=== PATIENT | female | born 2000 | race African-American/Black ===

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

== ENCOUNTER 2019-03-24 12:45 | Emergency (ER) | payer MEDICAID ==
[~2019-03-24] VITALS: Ht 160 cm; Wt 56.2 kg
[~2019-03-24 12:45] MED LIST: DIFLUCAN100 MG ORAL
[2019-03-24 13:00] VITALS: BP 105/73
[2019-03-24] MEDS ORDERED: Phenazopyridine 200mg tab ORAL ONE (13:15)
--- NOTE | 2019-03-24 13:23 | NUR ---
ED Nurse Note: Urine sent.
[2019-03-24 13:40] LABS: APPEARANCE,URINE SLIGHTLY CLOUDY; BILIRUBIN, URINE NEGATIVE (NEGATIVE); GLUCOSE, URINE (UA) NEGATIVE (NEGATIVE); KETONES,URINE NEGATIVE (NEGATIVE); LEUKOCYTE ESTERASE ,URINE 3+ (NEGATIVE); NITRITE,URINE NEGATIVE (NEGATIVE); PH,URINE 7 (4.5-8.0); PROTEIN,URINE 3+ (NEGATIVE); UROBILINOGEN,URINE 4 MG/DL (0.0-1.0)
[2019-03-24 13:44] LABS: COLOR,URINE YELLOW
--- NOTE | 2019-03-24 13:59 | Emergency Room Report ---
History of Present Illness General Chief Complaint: General Complaint Source: Patient Present Illness HPI 18 YO female presents to the ED c/o 03/30 in severity dysuria x 6 days. Patient also reporting associated fevers and chills she states she has a headache and was recently prescribed amoxicillin for URI symptoms and was given metronidazole for which she has not used. Patient reports some hematuria as well she denies suspicion of STI or . She reports lower abdominal pain she denies tenderness she denies constipation, diarrhea, vomiting. Patient does report some nausea and decreased appetite. Allergies: Coded Allergies: No Known Allergies (Unverified , 06/27/17) Patient History Past Medical History: see triage record Past Surgical History: none Pertinent Family History: none Last Menstrual Period: 03/07/19 Now: No Reviewed Nursing Documentation: PMH: Agreed; PSxH: Agreed Nursing Documentation-PMH Past Medical History: No Stated History Review of Systems All Other Systems: negative except mentioned in HPI Physical Exam Vital Signs Date Time Temp Pulse Resp B/P (MAP) Pulse Ox O2 Delivery O2 Flow Rate FiO2 03/24/19 12:54 98.8 110 15 105/73 (84) 99 Room Air Sp02 EP Interpretation: reviewed, normal General Appearance: no apparent distress, alert, GCS 15, non-toxic Head: normocephalic, atraumatic Eyes: bilateral eye normal inspection, bilateral eye PERRL ENT: hearing grossly normal, normal voice Neck: full range of motion Respiratory: chest non-tender, lungs clear, normal breath sounds, speaking full sentences Cardiovascular #1: regular rate, rhythm, tachycardia Gastrointestinal: normal bowel sounds, non tender, soft, non-distended, no guarding Genitourinary: normal inspection, CVA tenderness (R), CVA tenderness (L) Musculoskeletal: back normal, gait/station normal, normal range of motion, non- tender Neurologic: alert, oriented x3, responsive, motor strength/tone normal, sensory intact, normal gait, speech normal, grossly normal Psychiatric: judgement/insight normal Skin: no rash Lymphatic: no adenopathy Medical Decision Making PA Attestation Dr. Ordonez Is my supervising Physician whom patient management has been discussed with. Diagnostic Impression: Primary Impression: Urinary tract infection Qualified Codes: N30.01 - Acute cystitis with hematuria Additional Impressions: Pyelonephritis Trichomonas infection ER Course 18 YO female presents to the ED c/o 03/30 in severity dysuria x 6 days. Patient also reporting associated fevers and chills she states she has a headache and was recently prescribed amoxicillin for URI symptoms and was given metronidazole for which she has not used. Patient reports some hematuria as well she denies suspicion of STI or . She reports lower abdominal pain she denies tenderness she denies constipation, diarrhea, vomiting. Patient does report some nausea and decreased appetite. Ddx: considered but are not limited to UTi , Pyelo, STI, Stone, Cystitis Vital signs: Pt. is tachycardic, other vs are WNL, pt. is afebrile H&PE are most consistent with UTI / pyelonephritis due to CVA tenderness ORDERS: - UA labs are attached -- Elevated inflammatory markers, few bacteria, moderate trichomonas ED INTERVENTIONS: - Pyridium PO - 2g Flagyl PO ( due to pt. being non-compliant with previous rx's and not taking as rx'd). - 300mg Cefdinir PO -Zofran 4mg PO -Tramadol PO for pain DISCHARGE: At this time pt. is stable for d/c to home. Will provide printed patient care instructions, and any necessary prescriptions. Care plan and follow up instructions have been discussed with the patient prior to discharge. Labs Test 03/24/19 13:16 Urine Color Yellow Urine Appearance Slightly cloudy Urine pH 7 (4.5-8.0) Urine Specific [place] 1.005 (1.005-1.035) Urine Protein 3+ (NEGATIVE) Urine Glucose (UA) Negative (NEGATIVE) Urine Ketones Negative (NEGATIVE) Urine Blood 4+ (NEGATIVE) Urine Nitrite Negative (NEGATIVE) Urine Bilirubin Negative (NEGATIVE) Urine Urobilinogen 4 MG/DL (0.0-1.0) Urine Leukocyte Esterase 3+ (NEGATIVE) Urine RBC 2-4 /HPF (0 - 2) Urine WBC 20-30 /HPF (0 - 2) Urine Squamous Epithelial Cells Few /LPF (NONE/OCC) Urine Bacteria Few /HPF (NONE) Urine Trichomonas Occasional /HPF (NONE) Urine HCG, Qualitative Negative (NEGATIVE) Last Vital Signs Date Time Temp Pulse Resp B/P (MAP) Pulse Ox O2 Delivery O2 Flow Rate FiO2 03/24/19 12:54 98.8 110 15 105/73 (84) 99 Room Air Disposition: HOME, SELF-CARE Condition: Stable Scripts Acetaminophen With Codeine (T#3) (TYLENOL #3 TAB*) Y Tab 1 TAB ORAL Q6H PRN for For Pain, #6 TAB Prov: Talya Arzate 03/24/19 Phenazopyridine Hcl* (PYRIDIUM*) 100 Mg Tablet 100 MG ORAL THREE TIMES A DAY for 3 Days, #9 TAB Prov: Talya Arzate 03/24/19 Cefdinir (CEFDINIR) 300 Mg Capsule 300 MG PO BID for 7 Days, #14 CAP Prov: Talya Arzate 03/24/19 Referrals: [facility]REFERRING (PCP) Additional Instructions: Take medications as directed. Follow up with a Primary Care Provider in 3-5 days, even if your symptoms have resolved. --Please review list of primary care clinics, if you do not already have a primary care provider Return sooner to ED if new symptoms occur, or current symptoms become worse. - Please note that this Emergency Department Report was dictated using [employer] care administrator technology software, occasionally this can lead to erroneous entry secondary to interpretation by the dictation equipment. Talya Arzate Mar 24, 2019 13:59
[2019-03-24] MEDS ORDERED: Cefdinir 300mg cap ORAL ONE (14:15)
[2019-03-24] MEDS ORDERED: metroNIDAZOLE 500mg tab ORAL ONE (14:15)
--- NOTE | 2019-03-24 14:35 | NUR ---
ED Nurse Note: oral medication taken withno issue.
[2019-03-24] MEDS ORDERED: PHENAZOPYRIDIN100 MG ORAL (15:40)
[2019-03-24] MEDS ORDERED: CEFDINIR300 MG PO (15:40)
[2019-03-24] MEDS ORDERED: ACETAMINOPHEN-1 EAC1 ORAL (15:40)
[2019-03-24] MEDS ORDERED: traMADol 50mg tab ORAL ONE (16:00)
[2019-03-24 16:01] VITALS: BP 105/73
== END 2019-03-24 16:01 | disposition home or self-care (01) ==
LOC: EMR 13:21
DX: N30.01 Acute cystitis with hematuria (principal); N12 Tubulo-interstitial nephritis, not specified as acute or chronic; A59.9 Trichomoniasis, unspecified
CPT/HCPCS: 81003; 81025; 87086; 87181; Z7502; 99283